=== PATIENT | male | born 1985 | race Caucasian/White ===

== ENCOUNTER 2023-04-06 19:46 | Emergency (ER) | payer BC ==
[~2023-04-06] VITALS: Ht 180.3 cm; Wt 72.6 kg
[2023-04-06 20:00] VITALS: BP_SYST 136; PULSE 92; RESP 18; TEMP 98.2; O2SAT 96
[2023-04-06] MEDS ORDERED: ACETAMINOPHEN 325 MG TABLET PO ONE (21:00)
[2023-04-07] MEDS ORDERED: BACITRACIN 1 GM OINT TP ONE (02:43)
[2023-04-07] MEDS ORDERED: AUG875 PO (02:56)
[2023-04-07] MEDS ORDERED: CHLO473M5 PO (02:56)
[2023-04-07] MEDS ORDERED: [UNRECOGNIZED DRUG - CODE] MM (02:59)
[2023-04-07] MEDS ORDERED: OXYC-128 PO (03:11)
[2023-04-07 03:14] VITALS: BP_SYST 120; PULSE 84; RESP 18; TEMP 97; O2SAT 98
== END 2023-04-07 03:14 | disposition home or self-care (01) ==
LOC: SED 19:46
DX: S01.511A Laceration without foreign body of lip, initial encounter (principal); S01.512A Laceration without foreign body of oral cavity, initial encounter; Z79.899 Other long term (current) drug therapy; W11.XXXA Fall on and from ladder, initial encounter; Y93.89 Activity, other specified; Y92.89 Other specified places as the place of occurrence of the external cause; Y99.8 Other external cause status
CPT/HCPCS: 99291